=== PATIENT | male | born 1940 | race Caucasian/White ===

== ENCOUNTER → 2017-01-05 | Outpatient (CLI) | payer MEDICARE, BC, OTHER ==
[2015-03-27 05:35] VITALS: BP 162/75
[~2017-01-05] MED LIST: ALLO100T PO; ASPI-630 PO; ATEN50TA PO; CALC0.2530 PO; CHOL10003 PO; CLOP75TA57 PO; INDO25CA PO; LISI-334 PO; NITR0.4T22 SL; PANT40TA3 PO; PRAV40TA2 PO; TAMS0.4C97 PO; WARF5TAB7 PO
[2017-01-05 09:14] LABS: HEMATOCRIT 43.6 % (39.0-53.0); HEMOGLOBIN 14.3 g/dL (13.0-17.5)
[2017-01-05 09:17] LABS: CALCIUM 9.1 mg/dL (8.5-10.1); CREATININE 2.1 mg/dL (0.7-1.3); GFR 30.9; MAGNESIUM 1.8 mg/dL (1.8-2.4); PHOSPHORUS 3.6 mg/dL (2.6-4.7); POTASSIUM 4.3 mmol/L (3.5-5.1); URIC ACID 4.2 mg/dL (3.5-7.2)
[2017-01-05 20:09] LABS: MICROALB RD UR 36.2 ug/mL (Not Estab.)
== END | disposition home or self-care (01) ==
LOC: LAB 08:33
PROVIDERS: ATTEND Internal Medicine Nephrology
DX: I12.9 Hypertensive chronic kidney disease with stage 1 through stage 4 chronic kidney disease, or unspecified chronic kidney disease (principal); N18.3 Chronic kidney disease, stage 3 (moderate); E61.1 Iron deficiency; I15.0 Renovascular hypertension; I70.1 Atherosclerosis of renal artery; I70.90 Unspecified atherosclerosis; Z68.30 Body mass index [BMI] 30.0-30.9, adult
CPT/HCPCS: 36415; 80069; 82043; 82570; 83735; 84550; 85014; 85018

== ENCOUNTER → 2017-02-11 | Outpatient (CLI) | payer MEDICARE, BC, OTHER ==
[2015-03-27 05:35] VITALS: BP 162/75
[2017-02-11 08:55] LABS: HEMATOCRIT 42.5 % (39.0-53.0); HEMOGLOBIN 14.2 g/dL (13.0-17.5)
[2017-02-11 09:13] LABS: ALBUMIN 3.2 g/dL (3.4-5.0); CALCIUM 9.1 mg/dL (8.5-10.1); CREATININE 2.1 mg/dL (0.7-1.3); GFR 30.9; MAGNESIUM 1.7 mg/dL (1.8-2.4); PHOSPHORUS 3.2 mg/dL (2.6-4.7); POTASSIUM 4.4 mmol/L (3.5-5.1); URIC ACID 4.3 mg/dL (3.5-7.2)
[2017-02-11 19:10] LABS: MICRO CREAT RATIO <9.3 mg/g creat (0.0-30.0); MICROALB RD UR <12.0 ug/mL (Not Estab.)
== END | disposition home or self-care (01) ==
LOC: LAB 08:13
PROVIDERS: ATTEND Internal Medicine Nephrology
DX: I12.9 Hypertensive chronic kidney disease with stage 1 through stage 4 chronic kidney disease, or unspecified chronic kidney disease (principal); N18.3 Chronic kidney disease, stage 3 (moderate); E61.1 Iron deficiency; I15.0 Renovascular hypertension; I70.1 Atherosclerosis of renal artery; I70.90 Unspecified atherosclerosis; Z68.30 Body mass index [BMI] 30.0-30.9, adult
CPT/HCPCS: 36415; 80069; 82043; 82570; 83735; 84550; 85014; 85018

== ENCOUNTER → 2017-08-03 | Outpatient (CLI) | payer MEDICARE, BC, OTHER ==
[2015-03-27 05:35] VITALS: BP 162/75
[~2017-08-03] MED LIST changes: +WARF-31 PO; -WARF5TAB7 PO
[2017-08-03 10:51] LABS: BASO % 1 % (0-3); EOS # 0.2 x10^3/uL (0.0-0.7); EOS % 2 % (0-3); HEMATOCRIT 49.1 % (39.0-53.0); HEMOGLOBIN 16.3 g/dL (13.0-17.5); LYMPH # 1.8 x10^3/uL (1.0-4.8); LYMPH % 25 % (24-48); MEAN CORPUSCULAR HEMOGLOBIN 32 pg (25-35); MEAN CORPUSCULAR HGB CONC 33 g/dL (31-37); MEAN CORPUSCULAR VOLUME 98 fL (79-100); MONO # 0.6 x10^3/uL (0.0-1.1); MONO % 9 % (0-9); NEUT # 4.6 x10^3uL (1.8-7.7); NEUT % 64 % (31-73); PLATELET COUNT 160 x10^3/uL (140-400); RED BLOOD COUNT 5.03 x10^6/uL (4.30-5.70); RED CELL DISTRIBUTION WIDTH 15.9 % (11.5-14.5); WHITE BLOOD COUNT 7.2 x10^3/uL (4.0-11.0)
[2017-08-03 11:01] LABS: ALBUMIN 3.7 g/dL (3.4-5.0); CALCIUM 9.3 mg/dL (8.5-10.1); GFR 32.6; MAGNESIUM 1.9 mg/dL (1.8-2.4); PHOSPHORUS 3.2 mg/dL (2.6-4.7); POTASSIUM 4.5 mmol/L (3.5-5.1)
[2017-08-03 23:18] LABS: MICRO CREAT RATIO 22.6 mg/g creat (0.0-30.0); MICROALB RD UR 23.6 ug/mL (Not Estab.)
[2017-08-03 23:18] LABS: UR CREATININE RD 106.1 mg/dL (Not Estab.); UR PROTEIN RD 13.1 mg/dL (Not Estab.)
[2017-08-04 12:10] LABS: CALCIUM PTH 9.1 mg/dL (8.6-10.2); CREATININE PTH 1.77 mg/dL (0.76-1.27); PTH INTACT 48 pg/mL (15-65)
== END | disposition home or self-care (01) ==
LOC: LAB 09:25
PROVIDERS: ATTEND Internal Medicine Nephrology
DX: I12.9 Hypertensive chronic kidney disease with stage 1 through stage 4 chronic kidney disease, or unspecified chronic kidney disease (principal); N18.3 Chronic kidney disease, stage 3 (moderate); Z68.29 Body mass index [BMI] 29.0-29.9, adult
CPT/HCPCS: 36415; 80069; 82043; 82570; 83735; 83970; 84156; 85025

== ENCOUNTER → 2018-02-01 | Outpatient (CLI) | payer MEDICARE, BC, OTHER ==
[2015-03-27 05:35] VITALS: BP 162/75
[~2018-02-01] MED LIST changes: -INDO25CA PO; +INDO25CA5 PO
[2018-02-01 14:07] LABS: HEMOGLOBIN 15.1 g/dL (13.0-17.5)
[2018-02-01 14:18] LABS: BILIRUBIN,URINE NEG (NEG); CLARITY,URINE CLEAR; COLOR,URINE AMBER; GLUCOSE,URINE NEG (NEG); NITRITE,URINE NEG (NEG); RBC,URINE 0 /HPF (0-2); UROBILINOGEN,URINE 0.2 mg/dL (0.2 mg/dL)
[2018-02-01 14:19] LABS: BACTERIA,URINE 0 /HPF (0-FEW); HYALINE CASTS, URINE OCC /HPF; SQUAMOUS EPITHELIAL CELL,UR FEW /LPF; WBC,URINE OCC /HPF (0-4)
[2018-02-01 14:32] LABS: ALBUMIN 3.6 g/dL (3.4-5.0); CALCIUM 8.9 mg/dL (8.5-10.1); CREATININE 2.1 mg/dL (0.7-1.3); GFR 30.9; PHOSPHORUS 2.7 mg/dL (2.6-4.7); POTASSIUM 3.9 mmol/L (3.5-5.1)
[2018-02-02 06:15] LABS: MICRO CREAT RATIO 30.6 mg/g creat (0.0-30.0)
== END | disposition home or self-care (01) ==
LOC: LAB 13:35
PROVIDERS: ATTEND Internal Medicine Nephrology
DX: I12.9 Hypertensive chronic kidney disease with stage 1 through stage 4 chronic kidney disease, or unspecified chronic kidney disease (principal); E11.22 Type 2 diabetes mellitus with diabetic chronic kidney disease; N18.3 Chronic kidney disease, stage 3 (moderate); I70.90 Unspecified atherosclerosis; I25.10 Atherosclerotic heart disease of native coronary artery without angina pectoris; K21.9 Gastro-esophageal reflux disease without esophagitis; M10.9 Gout, unspecified; Z95.1 Presence of aortocoronary bypass graft; Z68.29 Body mass index [BMI] 29.0-29.9, adult; Z88.8 Allergy status to other drugs, medicaments and biological substances
CPT/HCPCS: 36415; 80069; 81001; 82043; 82570; 85014; 85018

== ENCOUNTER → 2018-08-30 | Outpatient (CLI) | payer MEDICARE, OTHER ==
[2015-03-27 05:35] VITALS: BP 162/75
[2018-08-30 12:22] LABS: ALBUMIN 3.7 g/dL (3.4-5.0); CALCIUM 9.2 mg/dL (8.5-10.1); CREATININE 2.2 mg/dL (0.7-1.3); GFR 29.2; MAGNESIUM 1.8 mg/dL (1.8-2.4); PHOSPHORUS 3.2 mg/dL (2.6-4.7); POTASSIUM 4.3 mmol/L (3.5-5.1)
[2018-08-30 12:44] LABS: BILIRUBIN,URINE NEG (NEG); CLARITY,URINE HAZY; COLOR,URINE YELLOW; GLUCOSE,URINE NEG (NEG); NITRITE,URINE NEG (NEG); UROBILINOGEN,URINE 0.2 mg/dL (0.2 mg/dL)
[2018-08-30 12:45] LABS: BACTERIA,URINE MOD /HPF (0-FEW); RBC,URINE 0 /HPF (0-2); SQUAMOUS EPITHELIAL CELL,UR FEW /LPF
[2018-08-30 14:39] LABS: CREATININE,RANDOM URINE 49.9 mg/dL (Not Establ.)
[2018-08-30 17:11] LABS: MICRO CREAT RATIO 26.7 mg/g creat (0.0-30.0); MICROALB RD UR 13.7 ug/mL (Not Estab.)
[2018-08-30 17:11] LABS: CALCIUM PTH 9.1 mg/dL (8.6-10.2); CREATININE PTH 2.02 mg/dL (0.76-1.27); PTH INTACT 60 pg/mL (15-65)
== END | disposition home or self-care (01) ==
LOC: LAB 10:38
PROVIDERS: ATTEND Nurse Practitioner Adult Health
DX: I12.9 Hypertensive chronic kidney disease with stage 1 through stage 4 chronic kidney disease, or unspecified chronic kidney disease (principal); N18.3 Chronic kidney disease, stage 3 (moderate); I70.90 Unspecified atherosclerosis; Z68.31 Body mass index [BMI] 31.0-31.9, adult; Z79.899 Other long term (current) drug therapy
CPT/HCPCS: 36415; 80069; 81001; 82043; 82570; 83735; 83970; 84156; 87086; 87186

== ENCOUNTER 2018-12-06 20:34 | Emergency (ER) | payer MEDICARE, OTHER ==
[~2018-12-06] VITALS: Ht 165.1 cm; Wt 80.3 kg
[2018-12-06] MEDS ORDERED: MECLIZINE 12.5 MG TABLET. PO PRN (21:15)
[2018-12-06 21:41] LABS: BASO % 0 % (0-3); EOS # 0.1 x10^3/uL (0.0-0.7); EOS % 1 % (0-3); HEMATOCRIT 45.3 % (39.0-53.0); HEMOGLOBIN 15.2 g/dL (13.0-17.5); LYMPH # 1.4 x10^3/uL (1.0-4.8); LYMPH % 18 % (24-48); MEAN CORPUSCULAR HEMOGLOBIN 33 pg (25-35); MEAN CORPUSCULAR HGB CONC 34 g/dL (31-37); MEAN CORPUSCULAR VOLUME 99 fL (79-100); MONO # 0.7 x10^3/uL (0.0-1.1); MONO % 9 % (0-9); NEUT # 5.8 x10^3uL (1.8-7.7); NEUT % 73 % (31-73); PLATELET COUNT 183 x10^3/uL (140-400); RED BLOOD COUNT 4.57 x10^6/uL (4.30-5.70); RED CELL DISTRIBUTION WIDTH 15.1 % (11.5-14.5); WHITE BLOOD COUNT 7.9 x10^3/uL (4.0-11.0)
[2018-12-06 21:45] LABS: ALBUMIN 3.7 g/dL (3.4-5.0); ALBUMIN/GLOBULIN RATIO 1.2 (1.0-1.7); CALCIUM 9.2 mg/dL (8.5-10.1); CREATININE 2.1 mg/dL (0.7-1.3); GFR 30.8; POTASSIUM 4.4 mmol/L (3.5-5.1); TOTAL BILIRUBIN 0.5 mg/dL (0.2-1.0); TOTAL PROTEIN 6.9 g/dL (6.4-8.2)
--- NOTE | 2018-12-06 21:58 | RAD ---
PQRS Compliance statement: One or more of the following individualized dose reduction techniques were utilized for this examination: 1. Automated exposure control. 2. Adjustment of the mA and/or kV according to patient size. 3. Use of iterative reconstruction technique. Indication:Dizziness with fall. Headache and neck pain. TECHNIQUE: CT head without IV contrast COMPARISON: 04/16/2007 FINDINGS: No pathologic extra-axial or intra-axial fluid collection. Mild atrophy. Old left periventricular lacunar infarct. The ventricles and basal cisterns are within normal limits. No acute intracranial bleed. Orbits are within normal limits. No large scalp hematoma. No acute calvarial fractures. Visualized paranasal sinuses and mastoid air cells are clear. IMPRESSION: 1. No acute intracranial bleed or calvarial fracture. Indication:Dizziness with fall. Headache and neck pain. TECHNIQUE: CT of the cervical spine without IV contrast with multiplanar reformats. COMPARISON:None FINDINGS: Cervical spine is in normal anatomic alignment. Atlantoaxial joint or is preserved with degenerative changes. No compression deformities. Facet joints are in normal anatomic alignment. Multilevel intervertebral disc space narrowing with anterior and posterior osteophyte formation. No acute fractures. Noncontrast appearance of the neck soft tissue is within normal limits. Clear lung apices. IMPRESSION: 1. No acute fractures. 2. Multilevel advanced degenerative disc disease from C4-C7. Electronically signed by: Rigo Ontiveros DO (12/06/2018 9:55 PM) [facility]
[2018-12-06] MEDS ORDERED: MECLIZINE 12.5 MG TABLET. PO STA (21:59)
--- NOTE | 2018-12-06 22:03 | PHYS DOC ---
Past History Past Medical History: CVA Past Surgical History: Tonsillectomy, Other Alcohol Use: None Drug Use: None Adult General Chief Complaint Chief Complaint: DIZZY/LIGHT HEADED HPI HPI Patient is a 78-year-old male who presents via EMS after reportedly falling at home and bumping his head. Patient indicates that he had no loss of consciousness. Patient does indicate that he fell because of being very dizzy. Patient does have long history of vertigo he states for at least last few years. He states that he frequently has problems with dizziness and often times has to hold onto things. Family was concerned because patient was having difficulty in getting up on his own, stating that he felt weak all over. Patient does complain of mild headache. He denies any nausea or vomiting.[] Review of Systems Review of Systems Constitutional: Denies fever or chills [] Eyes: Denies change in visual acuity, redness, or eye pain [] Respiratory: Denies cough or shortness of breath [] Cardiovascular: No additional information not addressed in HPI [] Neurologic: Complains of headache and dizziness without focal weakness or sensory changes [] All other systems were reviewed and found to be within normal limits, except as documented in this note. Current Medications Current Medications Current Medications Medications (Trade) Dose Ordered Sig/Juanito Start Time Stop Time Status Last Admin Dose Admin Meclizine HCl (Antivert) 25 mg 1X STAT 12/06/18 21:59 12/06/18 22:00 UNV Allergies Allergies Allergies Coded Allergies Type Severity Reaction Last Updated Verified atorvastatin Allergy Mild Unknown 03/25/15 Yes rosuvastatin Allergy Mild Unknown 03/25/15 Yes simvastatin Allergy Mild Unknown 03/25/15 Yes Physical Exam Physical Exam Constitutional: Well developed, well nourished, no acute distress, non-toxic appearance. [] HENT: Normocephalic, atraumatic, bilateral external ears normal, oropharynx moist, no oral exudates, nose normal. [] Eyes: PERRLA, EOMI, conjunctiva normal, no discharge. [] Neck: A cervical collar was placed by ER nurse upon patient arrival. [] Cardiovascular:Heart rate regular rhythm, no murmur [] Lungs & Thorax: Bilateral breath sounds clear to auscultation [] Abdomen: Bowel sounds normal, soft, no tenderness. [] Skin: Warm, dry, no erythema, no rash. [] Extremities: No tenderness, no cyanosis, no clubbing, ROM intact. [] Neurologic: Alert and oriented X 3, no focal deficits noted. [] Current Patient Data Vital Signs Vital Signs Date Time Temp Pulse Resp B/P (MAP) Pulse Ox O2 Delivery O2 Flow Rate FiO2 12/06/18 20:39 98.2 94 20 99 Room Air Lab Results Laboratory Tests Test 12/06/18 21:09 White Blood Count 7.9 x10^3/uL (4.0-11.0) Red Blood Count 4.57 x10^6/uL (4.30-5.70) Hemoglobin 15.2 g/dL (13.0-17.5) Hematocrit 45.3 % (39.0-53.0) Mean Corpuscular Volume 99 fL (79-100) Mean Corpuscular Hemoglobin 33 pg (25-35) Mean Corpuscular Hemoglobin Concent 34 g/dL (31-37) Red Cell Distribution Width 15.1 % (11.5-14.5) H Platelet Count 183 x10^3/uL (140-400) Neutrophils (%) (Auto) 73 % (31-73) Lymphocytes (%) (Auto) 18 % (24-48) L Monocytes (%) (Auto) 9 % (0-9) Eosinophils (%) (Auto) 1 % (0-3) Basophils (%) (Auto) 0 % (0-3) Neutrophils # (Auto) 5.8 x10^3uL (1.8-7.7) Lymphocytes # (Auto) 1.4 x10^3/uL (1.0-4.8) Monocytes # (Auto) 0.7 x10^3/uL (0.0-1.1) Eosinophils # (Auto) 0.1 x10^3/uL (0.0-0.7) Basophils # (Auto) 0.0 x10^3/uL (0.0-0.2) Sodium Level 140 mmol/L (136-145) Potassium Level 4.4 mmol/L (3.5-5.1) Chloride Level 107 mmol/L (98-107) Carbon Dioxide Level 22 mmol/L (21-32) Anion Gap 11 (6-14) Blood Urea Nitrogen 24 mg/dL (8-26) Creatinine 2.1 mg/dL (0.7-1.3) H Estimated GFR (Cockcroft-Gault) 30.8 BUN/Creatinine Ratio 11 (6-20) Glucose Level 123 mg/dL (70-99) H Calcium Level 9.2 mg/dL (8.5-10.1) Total Bilirubin 0.5 mg/dL (0.2-1.0) Aspartate Amino Transferase (AST) 14 U/L (15-37) L Alanine Aminotransferase (ALT) 27 U/L (16-63) Alkaline Phosphatase 80 U/L (46-116) Total Protein 6.9 g/dL (6.4-8.2) Albumin 3.7 g/dL (3.4-5.0) Albumin/Globulin Ratio 1.2 (1.0-1.7) EKG EKG EKG demonstrates normal sinus rhythm.[] Radiology/Procedures Radiology/Procedures [] Impressions: PROCEDURE: CT HEAD AND CERVICAL SPINE [facility] Compliance statement: One or more of the following individualized dose reduction techniques were utilized for this examination: 1. Automated exposure control. 2. Adjustment of the mA and/or kV according to patient size. 3. Use of iterative reconstruction technique. Indication:Dizziness with fall. Headache and neck pain. TECHNIQUE: CT head without IV contrast COMPARISON: 04/16/2007 FINDINGS: No pathologic extra-axial or intra-axial fluid collection. Mild atrophy. Old left periventricular lacunar infarct. The ventricles and basal cisterns are within normal limits. No acute intracranial bleed. Orbits are within normal limits. No large scalp hematoma. No acute calvarial fractures. Visualized paranasal sinuses and mastoid air cells are clear. IMPRESSION: 1. No acute intracranial bleed or calvarial fracture. Indication:Dizziness with fall. Headache and neck pain. TECHNIQUE: CT of the cervical spine without IV contrast with multiplanar reformats. COMPARISON:None FINDINGS: Cervical spine is in normal anatomic alignment. Atlantoaxial joint or is preserved with degenerative changes. No compression deformities. Facet joints are in normal anatomic alignment. Multilevel intervertebral disc space narrowing with anterior and posterior osteophyte formation. No acute fractures. Noncontrast appearance of the neck soft tissue is within normal limits. Clear lung apices. IMPRESSION: 1. No acute fractures. 2. Multilevel advanced degenerative disc disease from C4-C7. Electronically signed by: Rigo Rojas DO (12/06/2018 9:55 PM) [facility] DICTATED AND SIGNED BY: RIGO ROJAS DO DATE: 12/06/182154 Course & Med Decision Making Course & Med Decision Making Pertinent Labs and Imaging studies reviewed. (See chart for details) [] Dragon Disclaimer Dragon Disclaimer This electronic medical record was generated, in whole or in part, using a voice recognition dictation system. Departure Departure: Impression: Primary Impression: Vertigo Additional Impression: Orthostasis Disposition: 01 HOME, SELF-CARE Condition: STABLE Referrals: IKE BOWMAN (PCP) Patient Instructions: Orthostatic Hypotension, Vertigo Scripts Meclizine Hcl (MECLIZINE HCL) 25 Mg Tablet 1 TAB PO TID PRN for DIZZINESS, #90 TAB Prov: TONY CONCEPCION Jr. DO 12/06/18 Problem Qualifiers TONY CONCEPCION Jr. DO Dec 06, 2018 22:03
[2018-12-06] MEDS ORDERED: IV NORMAL SALINE 500ML 500 ML IV ONE (22:30)
[2018-12-06] MEDS ORDERED: MECL25TA3 PO (22:55)
[2018-12-06 23:02] VITALS: BP 142/78
--- NOTE | 2018-12-07 13:58 | EKG ---
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
== END 2018-12-06 23:02 | disposition home or self-care (01) ==
LOC: ER 20:34
DX: R42 Dizziness and giddiness (principal); I95.1 Orthostatic hypotension; R51 Headache; M50.320 Other cervical disc degeneration, mid-cervical region, unspecified level; Z86.73 Personal history of transient ischemic attack (TIA), and cerebral infarction without residual deficits; Z88.8 Allergy status to other drugs, medicaments and biological substances; W18.09XA Striking against other object with subsequent fall, initial encounter; Y93.89 Activity, other specified; Y92.098 Other place in other non-institutional residence as the place of occurrence of the external cause; Y99.8 Other external cause status
CPT/HCPCS: 36415; 70450; 72125; 80053; 84484; 85025; 99285; J7040; J8597

== ENCOUNTER → 2019-02-14 | Outpatient (CLI) | payer MEDICARE, OTHER ==
[~2019-02-14] MED LIST changes: +INDO25CA21 PO; -INDO25CA5 PO; +MECL25TA3 PO
[2019-02-14 09:17] LABS: HEMATOCRIT 46.3 % (39.0-53.0); HEMOGLOBIN 15.3 g/dL (13.0-17.5)
[2019-02-14 09:29] LABS: ALBUMIN 3.7 g/dL (3.4-5.0); CREATININE 1.8 mg/dL (0.7-1.3); GFR 36.8; PHOSPHORUS 3.4 mg/dL (2.6-4.7); POTASSIUM 4.4 mmol/L (3.5-5.1)
[2019-02-14 13:19] LABS: CREATININE,RANDOM URINE 78.4 mg/dL (Not Establ.)
[2019-02-15 00:07] LABS: MICRO CREAT RATIO 29.3 mg/g creat (0.0-30.0); MICROALB RD UR 27.3 ug/mL (Not Estab.)
[2019-02-15 09:08] LABS: CALCIUM PTH 9.8 mg/dL (8.6-10.2); CREATININE PTH 1.69 mg/dL (0.76-1.27); PTH INTACT 61 pg/mL (15-65)
== END | disposition home or self-care (01) ==
LOC: LAB 08:18
PROVIDERS: ATTEND Internal Medicine Nephrology
DX: I12.9 Hypertensive chronic kidney disease with stage 1 through stage 4 chronic kidney disease, or unspecified chronic kidney disease (principal); N18.3 Chronic kidney disease, stage 3 (moderate); Z68.29 Body mass index [BMI] 29.0-29.9, adult
CPT/HCPCS: 36415; 80069; 82043; 82570; 83970; 84156; 85014; 85018

== ENCOUNTER → 2019-06-29 | Outpatient (CLI) | payer MEDICARE, OTHER ==
[~2019-06-29] MED LIST changes: +MECL-75 PO; -MECL25TA3 PO
[2019-06-29 08:57] LABS: ALBUMIN 3.8 g/dL (3.4-5.0); ALBUMIN/GLOBULIN RATIO 1.2 (1.0-1.7); GFR 32.5; TOTAL BILIRUBIN 0.6 mg/dL (0.2-1.0)
[2019-06-29 08:59] LABS: POTASSIUM 4.5 mmol/L (3.5-5.1)
== END | disposition home or self-care (01) ==
LOC: LAB 08:12
PROVIDERS: ATTEND Nurse Practitioner
DX: E78.5 Hyperlipidemia, unspecified (principal)
CPT/HCPCS: 36415; 80053; 80061

== ENCOUNTER → 2019-08-22 | Outpatient (CLI) | payer MEDICARE, OTHER ==
[2019-08-22 09:37] LABS: HEMOGLOBIN 14.7 g/dL (13.0-17.5)
[2019-08-22 09:42] LABS: ALBUMIN 3.8 g/dL (3.4-5.0); CALCIUM 9.3 mg/dL (8.5-10.1); CREATININE 1.8 mg/dL (0.7-1.3); GFR 36.7; PHOSPHORUS 4.5 mg/dL (2.6-4.7); POTASSIUM 4.2 mmol/L (3.5-5.1)
[2019-08-22 13:25] LABS: CREATININE,RANDOM URINE 70.2 mg/dL (Not Establ.)
[2019-08-22 22:06] LABS: MICROALB RD UR 19.4 ug/mL (Not Estab.)
[2019-08-22 23:07] LABS: CALCIUM PTH 9.7 mg/dL (8.6-10.2); CREATININE PTH 1.81 mg/dL (0.76-1.27); PTH INTACT 47 pg/mL (15-65)
== END | disposition home or self-care (01) ==
LOC: LAB 08:23
PROVIDERS: ATTEND Nurse Practitioner Adult Health
DX: I12.9 Hypertensive chronic kidney disease with stage 1 through stage 4 chronic kidney disease, or unspecified chronic kidney disease (principal); N18.3 Chronic kidney disease, stage 3 (moderate); E21.1 Secondary hyperparathyroidism, not elsewhere classified; N28.1 Cyst of kidney, acquired; I70.1 Atherosclerosis of renal artery
CPT/HCPCS: 36415; 80069; 82043; 82570; 83970; 84156; 85014; 85018

== ENCOUNTER → 2019-09-27 | Outpatient (CLI) | payer MEDICARE, OTHER ==
[2019-09-27 09:43] LABS: CALCIUM 8.7 mg/dL (8.5-10.1); CREATININE 2.2 mg/dL (0.7-1.3); GFR 29.1
== END | disposition home or self-care (01) ==
LOC: LAB 08:47
PROVIDERS: ATTEND Nurse Practitioner Family
DX: I50.22 Chronic systolic (congestive) heart failure (principal); I49.5 Sick sinus syndrome; I48.0 Paroxysmal atrial fibrillation
CPT/HCPCS: 36415; 80048

== ENCOUNTER → 2020-02-22 | Outpatient (CLI) | payer MEDICARE, OTHER ==
[2020-02-22 09:47] LABS: ALBUMIN 3.6 g/dL (3.4-5.0); CALCIUM 8.7 mg/dL (8.5-10.1); CREATININE 2.2 mg/dL (0.7-1.3); GFR 29.1; PHOSPHORUS 3.7 mg/dL (2.6-4.7); POTASSIUM 4.2 mmol/L (3.5-5.1)
== END ==
LOC: LAB 08:30
PROVIDERS: ATTEND Internal Medicine Nephrology
DX: I12.9 Hypertensive chronic kidney disease with stage 1 through stage 4 chronic kidney disease, or unspecified chronic kidney disease (principal); N18.30 Chronic kidney disease, stage 3 unspecified; E21.1 Secondary hyperparathyroidism, not elsewhere classified; N28.1 Cyst of kidney, acquired; I70.1 Atherosclerosis of renal artery; I25.10 Atherosclerotic heart disease of native coronary artery without angina pectoris
CPT/HCPCS: 36415; 80069

== ENCOUNTER 2021-01-07 01:04 | Emergency (ER) | payer MEDICARE, OTHER ==
[~2021-01-07] VITALS: Ht 162.6 cm; Wt 74.9 kg
[~2021-01-07 01:04] MED LIST changes: -LISI-334 PO; +LISI20TA18 PO
--- NOTE | 2021-01-07 01:32 | PHYS DOC ---
Past History Past Medical History: CVA Past Surgical History: Other Alcohol Use: None Drug Use: None General Adult EDM: Chief Complaint: chest pain HPI: HPI: 80-year-old male presents with chest pain and shortness of breath. He tells me he has been having shortness of breath for a few days. Tonight he feels achy and crampy all over as well as short of breath. He does not have overt chest pain, but he did try a nitro just prior to arrival. He has tension in his upper back. He is vaccinated against COVID-19. 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 He denies cough, diaphoresis, fever, chills. Review of Systems: Review of Systems: Constitutional: Body aches, fatigue. Denies fever or chills Eyes: Denies change in visual acuity HENT: Denies nasal congestion or sore throat Respiratory: shortness of breath Cardiovascular: Denies chest pain or edema GI: Denies abdominal pain, nausea, vomiting, bloody stools or diarrhea : Denies dysuria Musculoskeletal: Denies back pain or joint pain Integument: Denies rash Neurologic: Denies headache, focal weakness or sensory changes Endocrine: Denies polyuria or polydipsia Lymphatic: Denies swollen glands Psychiatric: Denies depression or anxiety Allergies: Allergies: Allergies Coded Allergies Type Severity Reaction Last Updated Verified atorvastatin Allergy Mild Unknown 03/25/15 Yes rosuvastatin Allergy Mild Unknown 03/25/15 Yes simvastatin Allergy Mild Unknown 03/25/15 Yes Physical Exam: PE: Constitutional: Well developed, well nourished, no acute distress, non-toxic appearance. [] HENT: Normocephalic, atraumatic, bilateral external ears normal, oropharynx kaz st, no oral exudates, nose normal. [] Eyes: PERRLA, EOMI, conjunctiva normal, no discharge. [] Neck: Normal range of motion, no tenderness, supple, no stridor. [] Cardiovascular:Heart rate regular rhythm, no murmur [] Lungs & Thorax: Bilateral breath sounds clear to auscultation [] Abdomen: Bowel sounds normal, soft, no tenderness, no masses, no pulsatile masses. [] Skin: Warm, dry, no erythema, no rash. [] Back: No tenderness, no CVA tenderness. [] Extremities: No tenderness, no cyanosis, no clubbing, ROM intact, no edema. [] Neurologic: Alert and oriented X 3, normal motor function, normal sensory function, no focal deficits noted. [] Psychologic: Affect normal, judgement normal, mood normal. [] Current Patient Data: Vital Signs: Vital Signs Date Time Temp Pulse Resp B/P (MAP) Pulse Ox O2 Delivery O2 Flow Rate FiO2 01/07/21 01:09 97.9 94 22 159/88 100 Room Air EKG: EKG: Sinus rhythm, rate 94, normal axis, right bundle branch block, ST anomalies throughout. [] Radiology/Procedures: Radiology/Procedures: [] Heart Score: C/O Chest Pain: Yes HEART Score for Chest Pain: HEART Score for Chest Pain Response (Comments) Value History Slighlty/Non-Suspicious [address] Depression 2 Age > 65 2 Risk Factors >3 Risk Factors or Hx CAD 2 Troponin >3 x Normal Limit 2 Total 8 Risk Factors: Risk Factors: DM, Current or recent (<one month) smoker, HTN, HLP, family history of CAD, obesity. Risk Scores: Score 0 - 3: 2.5% MACE over next 6 weeks - Discharge Home Score 4 - 6: 20.3% MACE over next 6 weeks - Admit for Clinical Observation Score 7 - 10: 72.7% MACE over next 6 weeks - Early Invasive Strategies Course & Med Decision Making: Course & Med Decision Making Pertinent Labs and Imaging studies reviewed. (See chart for details) The patient's EKG has right bundle branch block and the ST segments appear to be depressed throughout. His labs are significant for a troponin of 3.450. He has a hemoglobin 9.1 which is a new versus a year ago. He has an elevated creatinine but this is similar to previous in the chart. I have paged cardiology. Patient's been given 324 of aspirin and nitro sublingual. He was also given 2 mg of morphine and 4 mg of Zofran. I spoke with the assistant maintenance manager, Dr. Dawkins and he would like the patient placed on a heparin drip and transferred to [facility]. The plan is for cardiac cath in the morning. I spoke with Dr. Arevalo, the hospitalist and he has accepted the patient for transfer and admission. The patient will go by ambulance. [] Dragon Disclaimer: Dragon Disclaimer: This electronic medical record was generated, in whole or in part, using a voice recognition dictation system. Departure Departure: Impression: Primary Impression: NSTEMI (non-ST elevated myocardial infarction) Disposition: 02 SHORT TERM HOSPITAL Condition: GUARDED Referrals: IKE BOWMAN (PCP) SHANELLE MAJOR DO Jan 07, 2021 01:32
[2021-01-07 01:57] LABS: BASO % 0 % (0-3); EOS % 0 % (0-3); HEMATOCRIT 27.9 % (39.0-53.0); HEMOGLOBIN 9.1 g/dL (13.0-17.5); LYMPH # 0.9 x10^3/uL (1.0-4.8); LYMPH % 9 % (24-48); MEAN CORPUSCULAR HEMOGLOBIN 30 pg (25-35); MEAN CORPUSCULAR HGB CONC 33 g/dL (31-37); MEAN CORPUSCULAR VOLUME 92 fL (79-100); MONO # 0.2 x10^3/uL (0.0-1.1); MONO % 2 % (0-9); NEUT % 89 % (31-73); PLATELET COUNT 217 x10^3/uL (140-400); RED BLOOD COUNT 3.04 x10^6/uL (4.30-5.70); WHITE BLOOD COUNT 10.1 x10^3/uL (4.0-11.0)
[2021-01-07] MEDS ORDERED: ONDANSETRON PF 4 MG/2 ML VIAL. IVP ONE (02:00)
[2021-01-07] MEDS ORDERED: MORPHINE SULFATE 2 MG/ML DISP.SYRIN. IV ONE ×2 (02:00→03:45)
[2021-01-07 02:02] LABS: CREATININE 2.6 mg/dL (0.7-1.3); GFR 23.9
[2021-01-07 02:07] LABS: ALBUMIN 3.3 g/dL (3.4-5.0); TOTAL BILIRUBIN 0.5 mg/dL (0.2-1.0); TOTAL PROTEIN 6.6 g/dL (6.4-8.2)
[2021-01-07] MEDS: NITROGLYCERIN SUBLINGUAL 0.4 MG BOTTLE OF 25. SL PRN ×2 (02:20→02:40)
[2021-01-07] MEDS ORDERED: ASPIRIN CHEWABLE 81 MG TABLET. PO ONE (02:30)
[2021-01-07] MEDS ORDERED: HEPARIN for IV BOLUS 10,000 UNIT/10 ML VIAL. IV ONE (02:30)
[2021-01-07] MEDS ORDERED: HEPARIN for IV BOLUS 10,000 UNIT/10 ML VIAL. IV PRN (02:30)
[2021-01-07] MEDS ORDERED: HEPARIN 25,000UTS/250ML PREMIX 250 ML IV PRN (02:30)
--- NOTE | 2021-01-07 02:52 | RAD ---
Site ID: [id number] EXAMINATION: XR CHEST 1V. HISTORY: 80 years Male Reason: SOB. COMPARISON: None. Findings: Sternotomy wires and the pacemaker with cardiac leads again seen similar to the previous ex ams. The heart is mildly enlarged with minimal vascular congestion suggested. No focal consolidation. . There is no effusion or pneumothorax. The mediastinum and marybeth appear unremarkable. Impression: Cardiomegaly with minimal vascular congestion. Electronically signed by: Eyal Nieves MD (01/07/2021 2:50 AM) [id number]
--- NOTE | 2021-01-07 03:40 | EKG ---
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
[2021-01-07 05:00] LABS: BACTERIA,URINE 0 /HPF (0-FEW); BILIRUBIN,URINE NEG (NEG); CLARITY,URINE CLEAR; COLOR,URINE YELLOW; GLUCOSE,URINE NEG (NEG); NITRITE,URINE NEG (NEG); RBC,URINE 0 /HPF (0-2); SQUAMOUS EPITHELIAL CELL,UR OCC /LPF; UROBILINOGEN,URINE 0.2 mg/dL (0.2 mg/dL); WBC,URINE RARE /HPF (0-4)
--- NOTE | 2021-01-07 06:01 | EKG ---
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
[2021-01-07 10:00] VITALS: BP 111/59
== END 2021-01-07 11:05 | disposition short-term general hospital (02) ==
LOC: ER 01:04
DX: I21.4 Non-ST elevation (NSTEMI) myocardial infarction (principal); Z20.822 Contact with and (suspected) exposure to COVID-19; Z86.73 Personal history of transient ischemic attack (TIA), and cerebral infarction without residual deficits; Z88.8 Allergy status to other drugs, medicaments and biological substances
CPT/HCPCS: 36415; 71045; 80053; 81001; 84484; 85025; 85610; 85730; 87426; 93005; 96365; 96366; 96375; 96376; 99285; C9803; J1644; J2270; J2405; U0003

== ENCOUNTER 2021-02-11 18:55 | Emergency (ER) | payer MEDICARE, OTHER ==
[~2021-02-11] VITALS: Ht 166.4 cm; Wt 69.5 kg
--- NOTE | 2021-02-11 19:09 | PHYS DOC ---
Past History Past Medical History: CVA Past Surgical History: Other Alcohol Use: None Drug Use: None Adult General Chief Complaint Chief Complaint: MECHANICAL FALL HPI HPI Patient is a 80-year-old male on aspirin and clopidogrel who presents emergency department with a chief complaint of fall from standing in his kitchen on a tile floor. States he slipped and fell, landed backwards, and has neck pain, all over, 6 out of 10, dull and achy in nature with pain in his mid and low back, 6 out of 10, dull and achy in nature. States he does have chronic low back pain. Denies any numbness/weakness/tingling. Denies any syncope, changes in vision, chest pain, shortness of breath, abdominal pain, nausea, vomiting, dysuria, hematuria or blood in the stool or diarrhea. States he is able to sit, stand and walk. Review of Systems Review of Systems Review of systems otherwise unremarkable except noted in HPI. Allergies Allergies Allergies Coded Allergies Type Severity Reaction Last Updated Verified atorvastatin Allergy Mild Unknown 03/25/15 Yes rosuvastatin Allergy Mild Unknown 03/25/15 Yes simvastatin Allergy Mild Unknown 03/25/15 Yes Physical Exam Physical Exam Constitutional: Well developed, well nourished, no acute distress, non-toxic appearance. [] HENT: Normocephalic, atraumatic, bilateral external ears normal, oropharynx moist, no oral exudates, nose normal. [] Eyes: PERRLA, EOMI, conjunctiva normal, no discharge. [] Neck: Normal range of motion, bilateral para cervical spinal muscle tenderness with no obvious deformities, step-offs or bruising Cardiovascular:Heart rate regular rhythm, no murmur [] Lungs & Thorax: Bilateral breath sounds clear to auscultation [] Abdomen: soft, no tenderness, no masses, no pulsatile masses. [] Skin: Warm, dry, no erythema, no rash. [] Back: Bilateral lumbar paraspinal muscle tenderness with no obvious bruising, step-offs or deformities, no CVA tenderness. [] Extremities: No tenderness, no cyanosis, no clubbing, ROM intact, no edema. [] Neurologic: Alert and oriented X 3, able to sit, stand and walk without issue, neurovascular exam intact, no focal deficits noted. [] Psychologic: Affect normal, judgement normal, mood normal. [] EKG EKG [] Radiology/Procedures Radiology/Procedures [] CT HEAD AND C-SPINE WO History: Reason: Fall on AC, loss of consciousness, neck pain, headache / Spl. Instructions: / History: Comparison: December 06, 2018 Technique: Noncontrast CT imaging was performed of the head and cervical spine. Coronal and sagittal reconstructions were performed. Exposure: One or more of the following individualized dose reduction techniques were utilized for this examination: 1. Automated exposure control 2. Adjustment of the mA and/or kV according to patient size 3. Use of iterative reconstruction technique. Findings: Head CT: No intracranial hemorrhage. No mass effect. No hydrocephalus. Mild brain parenchymal volume loss. Mild foci of decreased attenuation within the hemispheric white matter, most often due to chronic microvascular ischemia. Chronic left basal ganglia lacunar infarct, unchanged. Imaged orbits are unremarkable. Imaged paranasal sinuses and mastoid air cells are clear. No acute calvarial fracture. Cervical spine CT: Normal vertebral body height and alignment. No fracture. C6 vertebral body hemangioma. Moderate degenerative disc changes most prominent C4-C5, C5-C6 and C6-C7. 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 Facet arthropathy. Canal narrowing most prominent C3 5 C6 and C6-C7. Multilevel neuroforaminal narrowing. Soft tissues unremarkable. Impression: Head CT: 1. No acute intracranial abnormality. 2. Chronic left basal ganglia lacunar infarct. Cervical spine CT: 1. No acute fracture or subluxation of the cervical spine. 2. Moderate multilevel cervical spondylosis with mild ossification of posterior longitudinal ligament at the C5-C6 level contributing to canal narrowing. Electronically signed by: Go Morgan DO (02/11/2021 7:49 PM) [facility] FINDINGS: Visualized portions of the thyroid are unremarkable. No enlarged mediastinal lymph nodes are identified. Heart size is normal. No pericardial effusion. Moderate coronary artery calcifications are noted. CABG changes are also noted. Pacer with leads in the right heart. Thoracic aorta has a normal course and caliber. Pulmonary artery is not enlarged. Airways are patent. Strandy opacities at dependent portion lungs likely repre senting atelectasis. No suspicious lung nodules. No pleural effusion or thickening. Evaluation of solid organs limited secondary to noncontrast technique. Gallstones within the gallbladder. Liver, spleen, pancreas and adrenals are unremarkable. No perinephric inflammation or hydronephrosis. Bilateral nonobstructing renal calculi are noted. No ureteral calculi are identified. Bladder is partially distended and appears thin-walled. Prostate is moderately enlarged with a heterogenous hypoattenuating nodule along the superior aspect of the prostate measuring approximately 3.5 cm in diameter. Incidental note of congenital intestinal malrotation. Otherwise, large and small bowel are unremarkable. No free abdominal air or fluid. No obstruction. Abdominal aorta has a normal course and caliber. No enlarged intra-abdominal lymph nodes are identified. No suspicious osseous lesions or acute fractures. IMPRESSION: 1. No sequela of acute traumatic injury identified within the chest, abdomen or pelvis. 2. Cholelithiasis 3. Nephrolithiasis 4. Degenerative changes in the lumbar spine greatest at L3-L4. There is irregularity at the endplates at this level. No discrete paravertebral abnormality however MRI of the lumbar spine without and with contrast recommended for further evaluation. Electronically signed by: Christy Villa MD (02/11/2021 7:58 PM) [facility] Heart Score C/O Chest Pain: No Risk Factors: Risk Factors: DM, Current or recent (<one month) smoker, HTN, HLP, family history of CAD, obesity. Risk Scores: Risk Factors: DM, Current or recent (<one month) smoker, HTN, HLP, family history of CAD, obesity. Course & Med Decision Making Course & Med Decision Making Patient is a 80-year-old male who presents after mechanical fall at home with multiple musculoskeletal complaints. Vital signs notable for hypertension. Physical exam noted above. Patient denied need for pain medicine at this time as he got fentanyl in route via EMS. EKG noted above with no STEMI but does have some repolarization abnormalities. Troponin normal. Patient with no signs or symptoms of ACS. All imaging with no acute osseous abnormalities. C-spine cleared. Discussed all findings with patient. Advised on symptom management at home. Advised to follow-up in the morning with primary care physician to update on ED visit and set up a follow-up as soon as possible. Gave return precautions to the ED. Patient grateful, verbalized understanding and agreed with plan of discharge. Dragon Disclaimer Dragon Disclaimer This electronic medical record was generated, in whole or in part, using a voice recognition dictation system. Departure Departure: Impression: Primary Impression: Fall Additional Impression: Musculoskeletal pain Disposition: HOME / SELF CARE / HOMELESS Condition: GOOD Referrals: IKE BOWMAN (PCP) Patient Instructions: Fall Prevention and Home Safety, RICE - Routine Care for Injuries Additional Instructions: Thanks for coming into the emergency department tonight and allowing us to take care of you. Please read the attached information carefully to go back over things we discussed. Please continue a Tylenol, ibuprofen and ice regimen as tolerated as long as you are not allergic. Please be sure to stay well-hydrated and eat nutritious meals. Please call your primary care physician first thing in the morning to update on ED visit and set up a follow-up as soon as possible. Please come back to the ED with new or concerning symptoms as discussed. Problem Qualifiers GLORIA GUERRERO MD Feb 11, 2021 19:09
--- NOTE | 2021-02-11 19:42 | EKG ---
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
--- NOTE | 2021-02-11 19:51 | RAD ---
CT HEAD AND C-SPINE WO History: Reason: Fall on AC, loss of consciousness, neck pain, headache / Spl. Instructions: / Histo ry: Comparison: December 06, 2018 Technique: Noncontrast CT imaging was performed of the head and cervical spine. Coronal and sagittal reconstructions were performed. Exposure: One or more of the following individualized dose reduction techniques were utilized for thi s examination: 1. Automated exposure control 2. Adjustment of the mA and/or kV according to patient size 3. Use of iterative reconstruction technique. Findings: Head CT: No intracranial hemorrhage. No mass effect. No hydrocephalus. Mild brain parenchymal volume loss. Mild foci of decreased attenuation within the hemispheric white m atter, most often due to chronic microvascular ischemia. Chronic left basal ganglia lacunar infarct, unchanged. Imaged orbits are unremarkable. Imaged paranasal sinuses and mastoid air cells are clear. No acute ca lvarial fracture. Cervical spine CT: Normal vertebral body height and alignment. No fracture. C6 vertebral body hemangioma. Moderate degenerative disc changes most prominent C4-C5, C5-C6 and C6-C7. Mild ossification of suit maker ior longitudinal ligament at the C5-C6 level. Facet arthropathy. Canal narrowing most prominent C3 5 C6 and C6-C7. Multilevel neuroforaminal narrowing. Soft tissues unremarkable. Impression: Head CT: 1. No acute intracranial abnormality. 2. Chronic left basal ganglia lacunar infarct. Cervical spine CT: 1. No acute fracture or subluxation of the cervical spine. 2. Moderate multilevel cervical spondylosis with mild ossification of posterior longitudinal ligamen t at the C5-C6 level contributing to canal narrowing. Electronically signed by: Go Morgan DO (02/11/2021 7:49 PM) [facility]
--- NOTE | 2021-02-11 20:01 | RAD ---
Exam: CT chest, abdomen and pelvis without contrast INDICATION: Fall on anticoagulation TECHNIQUE: Sequential axial images through the chest, abdomen and pelvis obtained without IV contrast . Sagittal and coronal reformatted images were reconstructed from the axial data and reviewed. Exposure: One or more of the following in the visualized dose reduction techniques were utilized for this examination: 1. Automated exposure control 2. Adjustment of the MA and/or KV according to patient size 3. Use of iterative of reconstructive technique Comparisons: None FINDINGS: Visualized portions of the thyroid are unremarkable. No enlarged mediastinal lymph nodes are identifi ed. Heart size is normal. No pericardial effusion. Moderate coronary artery calcifications are noted. CAB G changes are also noted. Pacer with leads in the right heart. Thoracic aorta has a normal course and caliber. Pulmonary artery is not enlarged. Airways are patent. Strandy opacities at dependent portion lungs likely representing atelectasis. No suspicious lung nodules. No pleural effusion or thickening. Evaluation of solid organs limited secondary to noncontrast technique. Gallstones within the gallbladder. Liver, spleen, pancreas and adrenals are unremarkable. No perinephric inflammation or hydronephrosis. Bilateral nonobstructing renal calculi are noted. No u reteral calculi are identified. Bladder is partially distended and appears thin-walled. Prostate is moderately enlarged with a hetero genous hypoattenuating nodule along the superior aspect of the prostate measuring approximately 3.5 c m in diameter. Incidental note of congenital intestinal malrotation. Otherwise, large and small bowel are unremarkab le. No free abdominal air or fluid. No obstruction. Abdominal aorta has a normal course and caliber. No enlarged intra-abdominal lymph nodes are identified. No suspicious osseous lesions or acute fractures. IMPRESSION: 1. No sequela of acute traumatic injury identified within the chest, abdomen or pelvis. 2. Cholelithiasis 3. Nephrolithiasis 4. Degenerative changes in the lumbar spine greatest at L3-L4. There is irregularity at the endplate s at this level. No discrete paravertebral abnormality however MRI of the lumbar spine without and wi th contrast recommended for further evaluation. Electronically signed by: Christy Villa MD (02/11/2021 7:58 PM) [facility]
[2021-02-11 20:06] LABS: BASO % 1 % (0-3); EOS % 1 % (0-3); HEMATOCRIT 32.4 % (39.0-53.0); HEMOGLOBIN 10.2 g/dL (13.0-17.5); LYMPH # 1.6 x10^3/uL (1.0-4.8); LYMPH % 24 % (24-48); MEAN CORPUSCULAR HEMOGLOBIN 28 pg (25-35); MEAN CORPUSCULAR HGB CONC 32 g/dL (31-37); MEAN CORPUSCULAR VOLUME 87 fL (79-100); MONO # 0.8 x10^3/uL (0.0-1.1); MONO % 13 % (0-9); NEUT # 3.9 x10^3uL (1.8-7.7); NEUT % 61 % (31-73); PLATELET COUNT 239 x10^3/uL (140-400); RED BLOOD COUNT 3.72 x10^6/uL (4.30-5.70); RED CELL DISTRIBUTION WIDTH 17.1 % (11.5-14.5); WHITE BLOOD COUNT 6.4 x10^3/uL (4.0-11.0)
[2021-02-11 20:17] LABS: CALCIUM 8.9 mg/dL (8.5-10.1); CREATININE 1.7 mg/dL (0.7-1.3); GFR 39.1; POTASSIUM 3.8 mmol/L (3.5-5.1)
--- NOTE | 2021-02-11 20:27 | RAD ---
Exam: Pelvis with bilateral hips 2 views INDICATION: Fall, pelvis and hip pain TECHNIQUE: Frontal view of pelvis with frontal and frog-leg lateral views of the right and left hip Comparisons: None FINDINGS: Bone mineralization is normal. No acute or healed fractures. Soft tissues are unremarkable. Joint spa tyron are well-maintained. IMPRESSION: No acute osseous abnormality Electronically signed by: Christy Villa MD (02/11/2021 8:25 PM) [facility]
[2021-02-11] MEDS ORDERED: oxyCODONE/APAP 5/325 1 TAB TABLET ONE (20:49)
[2021-02-11] MEDS ORDERED: oxyCODONE/APAP 5/325 1 TAB TABLET PO ONE ×2 (21:30→22:00)
[2021-02-11 21:39] VITALS: BP 160/88
== END 2021-02-11 21:54 | disposition home or self-care (01) ==
LOC: ER 18:55
DX: M54.2 Cervicalgia (principal); M54.5 Low back pain; G89.29 Other chronic pain; Z86.73 Personal history of transient ischemic attack (TIA), and cerebral infarction without residual deficits; Z88.8 Allergy status to other drugs, medicaments and biological substances; W01.0XXA Fall on same level from slipping, tripping and stumbling without subsequent striking against object, initial encounter; Y93.89 Activity, other specified; Y92.89 Other specified places as the place of occurrence of the external cause; Y99.8 Other external cause status
CPT/HCPCS: 36415; 70450; 71250; 72125; 73521; 74176; 80048; 84484; 85025; 93005; 99285-25

== ENCOUNTER → 2021-08-07 | Outpatient (CLI) | payer MEDICARE, OTHER ==
[2021-08-07 12:25] LABS: BASO % 1 % (0-3); EOS # 0.1 x10^3/uL (0.0-0.7); EOS % 2 % (0-3); HEMATOCRIT 34.4 % (39.0-53.0); HEMOGLOBIN 10.4 g/dL (13.0-17.5); LYMPH # 2.1 x10^3/uL (1.0-4.8); LYMPH % 30 % (24-48); MEAN CORPUSCULAR HEMOGLOBIN 22 pg (25-35); MEAN CORPUSCULAR HGB CONC 30 g/dL (31-37); MEAN CORPUSCULAR VOLUME 73 fL (79-100); MONO # 0.5 x10^3/uL (0.0-1.1); MONO % 8 % (0-9); NEUT # 4.3 x10^3uL (1.8-7.7); NEUT % 60 % (31-73); PLATELET COUNT 266 x10^3/uL (140-400); RED CELL DISTRIBUTION WIDTH 20.6 % (11.5-14.5); WHITE BLOOD COUNT 7.1 x10^3/uL (4.0-11.0)
[2021-08-07 12:38] LABS: ALBUMIN 3.9 g/dL (3.4-5.0); ALBUMIN/GLOBULIN RATIO 1.1 (1.0-1.7); CALCIUM 9.1 mg/dL (8.5-10.1); CREATININE 1.9 mg/dL (0.7-1.3); GFR 34.3; POTASSIUM 4.4 mmol/L (3.5-5.1); TOTAL BILIRUBIN 0.3 mg/dL (0.2-1.0); TOTAL PROTEIN 7.4 g/dL (6.4-8.2)
[2021-08-07 13:09] LABS: ANISOCYTOSIS PRESENT; HYPOCHROMIA PRESENT; MICROCYTOSIS PRESENT; OVALOCYTES FEW; POLYCHROMASIA PRESENT
[2021-08-07 13:10] LABS: TEAR DROP CELLS PRESENT
[2021-08-07 13:11] LABS: PLT ESTIMATE ADEQUATE (ADEQUATE)
== END ==
LOC: LAB 11:33
PROVIDERS: ATTEND Nurse Practitioner
DX: I10 Essential (primary) hypertension (principal); I50.32 Chronic diastolic (congestive) heart failure; R06.00 Dyspnea, unspecified
CPT/HCPCS: 36415; 80053; 83880; 85025